=== PATIENT | male | born 1980 | race Caucasian/White ===

== ENCOUNTER 2020-07-19 19:50 | Emergency (ER) | payer SELFPAY ==
[~2020-07-19] VITALS: Ht 172.7 cm; Wt 84.0 kg
[2020-07-19] MEDS ORDERED: SODIUM CHLORIDE 0.9% 1,000 ML IV ONE (20:30)
[2020-07-19 21:02] LABS: BASOPHILS % 0.5 % (0.0-2.0); EOSINOPHILS % 0.3 % (0.0-5.0); HEMATOCRIT. 45.1 % (42.0-52.0); HEMOGLOBIN. 15.6 g/dL (14.0-18.0); LYMPHOCYTES % 42.8 % (20.0-50.0); MEAN CORPUSCULAR HEMOGLOBIN 30.1 pg (28.0-32.0); MEAN CORPUSCULAR VOLUME 86.9 fL (80.0-94.0); MEAN PLATELET VOLUME 6.8 fl (7.4-10.4); MONOCYTES % 4.5 % (2.0-8.0); NEUTROPHILS % 51.9 % (40.0-76.0); PLATELET 322 x1000/uL (130-400); RED BLOOD CELL COUNT 5.18 mill/uL (4.7-6.1); RED CELL DISTRIBUTION WIDTH 14.4 % (11.6-14.6)
[2020-07-19 21:09] LABS: CHLORIDE 110 mEq/L (98-107)
[2020-07-19 21:23] LABS: ETHANOL BLOOD 503 mg/dL
[2020-07-20 07:15] VITALS: BP 116/82
== END 2020-07-20 07:30 | disposition home or self-care (01) ==
LOC: EDBD 19:50 → ER 19:50
DX: F10.129 Alcohol abuse with intoxication, unspecified (principal); Y90.8 Blood alcohol level of 240 mg/100 ml or more; R00.0 Tachycardia, unspecified
CPT/HCPCS: 36415; 70450; 80053; 80320; 82962; 84484; 85025; 93005; 96360; 96361; 99285; J7030; G0480

== ENCOUNTER 2021-09-09 11:46 | Emergency (ER) | payer MEDICAID ==
[~2021-09-09] VITALS: Ht 172.7 cm; Wt 80.0 kg
[2021-09-09] MEDS ORDERED: MAGNESIUM/ALUMINUM HYDROXIDE/SIMETHICONE 30ML UDC PO STA (12:11)
[2021-09-09] MEDS ORDERED: FAMOTIDINE 20MG/2ML VIAL IV STA (12:11)
[2021-09-09] MEDS ORDERED: KETOROLAC 30MG/ML VIAL IV STA (12:11)
[2021-09-09] MEDS ORDERED: CHLORDIAZEPOXIDE 25MG CAPSULE PO ONE ×2 (12:15→19:00)
[2021-09-09] MEDS ORDERED: SODIUM CHLORIDE 0.9% 1,000 ML IV ONE ×3 (12:15→19:00)
[2021-09-09 13:07] LABS: BASOPHILS % 0.4 % (0.0-2.0); EOSINOPHILS % 0.2 % (0.0-5.0); HEMATOCRIT. 40.8 % (42.0-52.0); LYMPHOCYTES % 18.1 % (20.0-50.0); MEAN CORPUSCULAR HEMOGLOBIN 31.3 pg (28.0-32.0); MEAN CORPUSCULAR VOLUME 91.3 fL (80.0-94.0); MEAN PLATELET VOLUME 8.1 fl (7.4-10.4); MONOCYTES % 6.6 % (2.0-8.0); NEUTROPHILS % 74.7 % (40.0-76.0); PLATELET 138 x1000/uL (130-400); RED BLOOD CELL COUNT 4.47 mill/uL (4.7-6.1); RED CELL DISTRIBUTION WIDTH 14.1 % (11.6-14.6)
[2021-09-09 13:14] LABS: CHLORIDE 97 mEq/L (98-107)
[2021-09-09 13:27] LABS: ETHANOL BLOOD 359 mg/dL
[2021-09-09 15:54] LABS: CLARITY URINE CLEAR (CLEAR); COLOR URINE YELLOW (YELLOW); KETONES URINE 1+ (NEGATIVE); LEUKOCYTE ESTERASE URINE NEGATIVE (NEGATIVE); NITRITE URINE NEGATIVE (NEGATIVE); OCCULT BLOOD URINE 1+ (NEGATIVE); PROTEIN URINE 3+ (NEGATIVE); SPECIFIC GRAVITY URINE 1.015 (1.005-1.030)
[2021-09-10] VITALS: BP 130/66
== END 2021-09-10 00:43 | disposition home or self-care (01) ==
LOC: ER 11:46
DX: F10.129 Alcohol abuse with intoxication, unspecified (principal); E87.6 Hypokalemia; E87.2 Acidosis; Y90.8 Blood alcohol level of 240 mg/100 ml or more; K76.0 Fatty (change of) liver, not elsewhere classified; J84.10 Pulmonary fibrosis, unspecified; N28.1 Cyst of kidney, acquired
CPT/HCPCS: 36415; 71045; 74176; 80053; 80320; 81003; 83605; 83690; 83880; 84484; 85025; 96361; 96374; 96375; 99285; J1885; J3490; J7030; G0480